=== PATIENT | male | born 1975 | race Caucasian/White ===

== ENCOUNTER 2016-05-03 17:24 | Emergency (ER) | payer OTHER ==
[~2016-05-03] VITALS: Ht 175.3 cm; Wt 97.7 kg
[~2016-05-03 17:24] MED LIST: ABILIFY5 MG PO; ALDACTONE50 MG PO; AMLODIPINE BESY10 MG PO; APRESOLINE25 MG PO; ASPIR-LOW81 MG PO; AZITHROMYCIN250 MG1 PO; Bentyl PO; CIPRO500 MG PO; CLARITIN10 M3 PO; CLARITIN10 MG PO; COMBIVENT RESPIM4 GM IH; DEPAKOTE500 MG PO; FIORICET,ESG1 TABLET PO; FLAGYL250 MG PO; FLONASE16 G1 BOTH NARES; GUAIFENESIN600 M1 PO; HYDROCHLOROTHIA25 MG PO; Hydrodiuril,Oretic,E PO; KEFLEX500 MG PO; LITHIUM CARBON300 MG PO; LORTAB 5-325 M1 EACH PO; METOPROLOL SUCC50 MG PO; METOPROLOL TART50 MG PO; NAMENDA XR28 MG PO; NAPROSYN500 MG PO; NORCO 5/3251 TABLET PO; NORTRIPTYLINE H25 MG PO; NORVASC; NORVASC10 MG PO; NORVASC5 MG PO; OMEPRAZOLE20 MG PO; ONDANSETRON HCL4 MG PO; PANTOPRAZOLE SO40 MG PO; PERCOCET 5/31 TABLET PO; POLYMYXIN B-TMP10 ML BOTH EYES; PRILOSEC10 MG PO; PRINIVIL20 MG PO; PROTONIX40 MG PO; PROZAC; Prozac PO; RANITIDINE HCL75 MG PO; REGLAN5 MG PO; ROBITUSSIN NIG118 ML PO; SINGULAIR10 MG PO; SUDAFED30 MG PO; SYMBICORT60 INHALA1 IH; TENORMIN100 MG PO; TOPAMAX25 MG PO; Toprol XL PO; ULTRAM50 MG PO; ZESTRIL,PRINIV2.5 MG PO; ZOFRAN4 MG PO; [UNRECOGNIZED DRUG - OTHER]
[2016-05-03] MEDS ORDERED: KEFLEX500 MG PO (18:45)
[2016-05-03] MEDS ORDERED: PERCOCET 5/31 TABLET PO (18:45)
[2016-05-03 19:07] VITALS: BP 155/88
== END 2016-05-03 19:22 | disposition home or self-care (01) ==
LOC: EME 17:24 → EXP 17:24
DX: L03.113 Cellulitis of right upper limb (principal); M77.8 Other enthesopathies, not elsewhere classified; E78.5 Hyperlipidemia, unspecified; I10 Essential (primary) hypertension
CPT/HCPCS: 99281; 99285

== ENCOUNTER → 2016-05-17 | Outpatient (CLI) | payer OTHER | END | disposition home or self-care (01) | LOC: NUC 07:20 | DX: R10.12 Left upper quadrant pain (principal); Z88.6 Allergy status to analgesic agent | CPT/HCPCS: 78264; A9541 ==

== ENCOUNTER 2016-06-11 13:16 | Emergency (ER) | payer OTHER ==
[~2016-06-11 13:16] MED LIST changes: +ESOMEPRAZOLE MA40 MG PO; +LOSARTAN POTASS50 MG PO; +MONTELUKAST SOD10 MG PO; +SIMVASTATIN10 MG PO
== END 2016-06-11 14:10 | disposition left against medical advice (07) ==
LOC: EME 13:16
DX: Z53.21 Procedure and treatment not carried out due to patient leaving prior to being seen by health care provider (principal)
CPT/HCPCS: 93005

== ENCOUNTER 2016-06-21 23:22 | Emergency (ER) | payer OTHER ==
[~2016-06-21] VITALS: Ht 175.3 cm; Wt 101.2 kg
[2016-06-22 00:42] LABS: EOSINOPHIL COUNT 0.2 K/uL (0-0.3); HEMATOCRIT 46.7 % (38.0-50.0); IMMATURE GRANULOCYTE (%) 0.2 % (0.0-0.7); IMMATURE GRANULOCYTE COUNT 0.2 K/uL; LYMPHOCYTE COUNT 3.2 K/uL (1.0-2.8); MCH 28.9 PG (29.0-34.0); MCHC 35.1 G/DL (30.0-36.0); MCV 82.4 FL (86-99); MEAN PLAT.VOLUME 9.2 uM^3 (9.0-12.4); MONOCYTE (%) 8.4 % (3-12); MONOCYTE COUNT 0.7 K/uL (0-0.8); NEUTROPHIL (%) 51.6 % (45-76); NEUTROPHIL COUNT 4.4 K/uL (1.8-6.4); PLATELET COUNT 219 K/uL (156-360); RBC DIS.WIDTH-CV 12.9 % (11.8-14.6); RBC DIS.WIDTH-SD 38.7 % (39-53); RED BLOOD COUNT 5.67 M/uL (4.00-5.50); WHITE BLOOD COUNT 8.6 K/uL (4.1-10.2)
[2016-06-22 01:07] LABS: CHLORIDE 110 mEq/L (99-109); SODIUM 142 mEq/L (136-147)
[2016-06-22 01:09] LABS: GLUCOSE 122 mg/dL (70-99)
[2016-06-22 01:11] LABS: ANION GAP 11 MEQ/L (2-14); TOTAL BILIRUBIN 0.3 mg/dL (0.0-1.0)
[2016-06-22 01:13] LABS: ALKALINE PHOSPHATASE 75 IU/L (3-129); GFR ESTIMATE (CALCULATED) > 59 mL/min/
[2016-06-22 01:14] LABS: UREA NITROGEN (BUN) 14 mg/dL (9-23)
[2016-06-22 01:16] LABS: URIC ACID 6.6 mg/dL (3.1-9.2)
[2016-06-22 01:28] LABS: ADD MIUA? NO; BILIRUBIN NEGATIVE; BLOOD NEGATIVE; COLOR YELLOW ((YELLOW)); GLUCOSE (STRIP) NEGATIVE; KETONES NEGATIVE; LEUKOCYTES NEGATIVE; NITRITE NEGATIVE; PROTEIN (STRIP) NEGATIVE; SPECIFIC GRAVITY 1.025 (1.000-1.030); UCUL ADDED? NO
[2016-06-22 03:25] VITALS: BP 121/77
== END 2016-06-22 03:26 | disposition home or self-care (01) ==
LOC: EME 23:22
PROVIDERS: Emergency Medicine
DX: M79.89 Other specified soft tissue disorders (principal); M79.671 Pain in right foot; M79.672 Pain in left foot; I10 Essential (primary) hypertension
CPT/HCPCS: 73610; 80053; 81003; 84550; 85025; 93970; 99281; 99284

== ENCOUNTER 2016-08-12 19:02 | Emergency (ER) | payer OTHER ==
[~2016-08-12] VITALS: Ht 175.3 cm; Wt 102.1 kg
[2016-08-12 19:29] LABS: ADD MIUA? YES; BILIRUBIN NEGATIVE; BLOOD NEGATIVE; COLOR YELLOW ((YELLOW)); GLUCOSE (STRIP) NEGATIVE; KETONES NEGATIVE; LEUKOCYTES NEGATIVE; NITRITE NEGATIVE; PROTEIN (STRIP) 30; SPECIFIC GRAVITY 1.021 (1.000-1.030); UROBILINOGEN 0.2 MG/DL (0.2-1.0)
[2016-08-12 19:45] LABS: EOSINOPHIL (%) 1.2 % (0-5); EOSINOPHIL COUNT 0.1 K/uL (0-0.3); HEMATOCRIT 50.2 % (38.0-50.0); IMMATURE GRANULOCYTE (%) 0.3 % (0.0-0.7); INSTRUMENT ABS NEUTROPHIL CT 5.7 K/uL; LYMPHOCYTE COUNT 3.1 K/uL (1.0-2.8); MCH 29.6 PG (29.0-34.0); MCHC 35.1 G/DL (30.0-36.0); MCV 84.4 FL (86-99); MONOCYTE (%) 6.9 % (3-12); MONOCYTE COUNT 0.7 K/uL (0-0.8); NEUTROPHIL (%) 59.6 % (45-76); NEUTROPHIL COUNT 5.7 K/uL (1.8-6.4); PLATELET COUNT 292 K/uL (156-360); RBC DIS.WIDTH-CV 12.4 % (11.8-14.6); RBC DIS.WIDTH-SD 37.7 % (39-53); RED BLOOD COUNT 5.95 M/uL (4.00-5.50); WHITE BLOOD COUNT 9.7 K/uL (4.1-10.2)
[2016-08-12 19:47] LABS: CHLORIDE 105 mEq/L (99-109); POTASSIUM 3.7 mEq/L (3.7-5.4); SODIUM 139 mEq/L (136-147)
[2016-08-12 19:49] LABS: GLUCOSE 99 mg/dL (70-99)
[2016-08-12 19:50] LABS: ANION GAP 11 MEQ/L (2-14)
[2016-08-12 19:51] LABS: TOTAL BILIRUBIN 0.3 mg/dL (0.0-1.0)
[2016-08-12 19:52] LABS: ALKALINE PHOSPHATASE 70 IU/L (3-129)
[2016-08-12 19:53] LABS: BACTERIA 1+ /HPF; CASTS NONE SEEN /LPF; CRYSTALS PRESENT; EPITHELIAL CELLS RARE /HPF; MUCUS 1+ /LPF; RED BLOOD CELLS 0-5 /HPF (0-5); UCUL ADDED? NO; WHITE BLOOD CELLS 0-5 /HPF (0-5)
[2016-08-12 19:53] LABS: GFR ESTIMATE (CALCULATED) > 59 mL/min/
[2016-08-12 19:54] LABS: AMORPHOUS URATES CRYSTALS 1+
[2016-08-12 19:54] LABS: UREA NITROGEN (BUN) 21 mg/dL (9-23)
[2016-08-12 19:56] LABS: LIPASE 31 U/L (1.0-51.0)
[2016-08-12] MEDS ORDERED: PHENERGAN25 MG PR (21:13)
[2016-08-12] MEDS ORDERED: BENTYL20 MG PO (21:13)
[2016-08-12] MEDS ORDERED: PROMETHAZINE HC25 M1 PO (21:13)
[2016-08-12 21:55] VITALS: BP 158/95
== END 2016-08-12 21:56 | disposition home or self-care (01) ==
LOC: EME 19:02
PROVIDERS: Physician Assistant
DX: N20.0 Calculus of kidney (principal); R11.0 Nausea; J45.909 Unspecified asthma, uncomplicated; I10 Essential (primary) hypertension
CPT/HCPCS: 74000; 76770; 80053; 81003; 83690; 85025; 87086; 99281; 99284; J1885; J2550; J3010; Q0169

== ENCOUNTER 2016-09-22 14:36 | Emergency (ER) | payer OTHER ==
[~2016-09-22] VITALS: Ht 177.8 cm; Wt 100.4 kg
[~2016-09-22 14:36] MED LIST changes: +BENTYL20 MG PO; +PHENERGAN25 MG PR; +PROMETHAZINE HC25 M1 PO
[2016-09-22 15:26] LABS: HEMATOCRIT 52.6 % (38.0-50.0); MCH 29.1 PG (29.0-34.0); MCHC 35.2 G/DL (30.0-36.0); MCV 82.8 FL (86-99); PLATELET COUNT 259 K/uL (156-360); RBC DIS.WIDTH-CV 11.9 % (11.8-14.6); RBC DIS.WIDTH-SD 36.3 % (39-53); RED BLOOD COUNT 6.35 M/uL (4.00-5.50); WHITE BLOOD COUNT 8.6 K/uL (4.1-10.2)
[2016-09-22 15:37] LABS: CHLORIDE 106 mEq/L (99-109); POTASSIUM 3.7 mEq/L (3.7-5.4); SODIUM 140 mEq/L (136-147)
[2016-09-22 15:39] LABS: GLUCOSE 92 mg/dL (70-99)
[2016-09-22 15:40] LABS: ANION GAP 12 MEQ/L (2-14)
[2016-09-22 15:41] LABS: TOTAL BILIRUBIN 0.6 mg/dL (0.0-1.0)
[2016-09-22 15:42] LABS: ALKALINE PHOSPHATASE 62 IU/L (3-129)
[2016-09-22 15:43] LABS: GFR ESTIMATE (CALCULATED) > 59 mL/min/
[2016-09-22 15:44] LABS: UREA NITROGEN (BUN) 20 mg/dL (9-23)
[2016-09-22 15:46] LABS: LIPASE 19 U/L (1.0-51.0)
[2016-09-22 15:53] LABS: ADD MIUA? NO; BILIRUBIN NEGATIVE; BLOOD NEGATIVE; COLOR YELLOW ((YELLOW)); GLUCOSE (STRIP) NEGATIVE; KETONES 5; LEUKOCYTES NEGATIVE; NITRITE NEGATIVE; PROTEIN (STRIP) 30; SPECIFIC GRAVITY 1.025 (1.000-1.030); UCUL ADDED? NO; UROBILINOGEN 0.2 MG/DL (0.2-1.0)
[2016-09-22] MEDS ORDERED: KEFLEX500 MG PO (16:45)
[2016-09-22] MEDS ORDERED: PYRIDIUM200 MG PO (16:46)
[2016-09-22 17:57] VITALS: BP 137/91
== END 2016-09-22 17:59 | disposition home or self-care (01) ==
LOC: EME 14:36
PROVIDERS: Physician Assistant
DX: N30.00 Acute cystitis without hematuria (principal); I10 Essential (primary) hypertension; Z88.1 Allergy status to other antibiotic agents; Z88.6 Allergy status to analgesic agent
CPT/HCPCS: 74176; 80053; 81003; 83690; 85027; 87086; 99281; 99284; J0696; J3010

== ENCOUNTER 2016-09-27 19:33 | Emergency (ER) | payer OTHER ==
[~2016-09-27] VITALS: Ht 177.8 cm; Wt 100.3 kg
[~2016-09-27 19:33] MED LIST changes: +PYRIDIUM200 MG PO
[2016-09-27 20:14] LABS: HEMATOCRIT 53.1 % (38.0-50.0); MCH 29.2 PG (29.0-34.0); MCV 83.2 FL (86-99); MEAN PLAT.VOLUME 8.9 uM^3 (9.0-12.4); PLATELET COUNT 266 K/uL (156-360); RBC DIS.WIDTH-SD 36.8 % (39-53); RED BLOOD COUNT 6.38 M/uL (4.00-5.50); WHITE BLOOD COUNT 8.8 K/uL (4.1-10.2)
[2016-09-27 20:17] LABS: CHLORIDE 106 mEq/L (99-109); POTASSIUM 3.7 mEq/L (3.7-5.4)
[2016-09-27 20:18] LABS: SODIUM 140 mEq/L (136-147)
[2016-09-27 20:19] LABS: GLUCOSE 85 mg/dL (70-99)
[2016-09-27 20:21] LABS: ANION GAP 10 MEQ/L (2-14)
[2016-09-27 20:23] LABS: GFR ESTIMATE (CALCULATED) > 59 mL/min/
[2016-09-27 20:24] LABS: UREA NITROGEN (BUN) 13 mg/dL (9-23)
[2016-09-27 21:34] LABS: ADD MIUA? NO; BILIRUBIN NEGATIVE; BLOOD NEGATIVE; COLOR STRAW ((YELLOW)); GLUCOSE (STRIP) NEGATIVE; KETONES 5; LEUKOCYTES NEGATIVE; NITRITE NEGATIVE; PROTEIN (STRIP) NEGATIVE; SPECIFIC GRAVITY 1.006 (1.000-1.030); UCUL ADDED? NO; UROBILINOGEN 0.2 MG/DL (0.2-1.0)
[2016-09-27 21:45] LABS: AMPHETAMINE NEGATIVE (500 ng/mL); BARBITURATES NEGATIVE (200 ng/mL); BENZODIAZEPINES NEGATIVE (150 ng/mL); COCAINE NEGATIVE (150 ng/mL); INTERNAL CONTROLS VALID? YES; METHADONE NEGATIVE (200 ng/mL); METHAMPHETAMINE NEGATIVE (500 ng/mL); OPIATES (MORPHINE) NEGATIVE (100 ng/mL); OXYCODONE NEGATIVE (100 ng/mL); PHENCYCLIDINE NEGATIVE (25 ng/mL); PROPOXYPHENE NEGATIVE (300 ng/mL); THC CANNABINOIDS NEGATIVE (50 ng/mL); TRICYCLIC ANTIDEPRESSANTS NEGATIVE (300 ng/mL)
[2016-09-27 23:45] VITALS: BP 130/88
== END 2016-09-27 23:46 | disposition home or self-care (01) ==
LOC: EME 19:33 → EXP 19:33
PROVIDERS: Physician Assistant
DX: G43.909 Migraine, unspecified, not intractable, without status migrainosus (principal); R20.8 Other disturbances of skin sensation; I10 Essential (primary) hypertension; K58.9 Irritable bowel syndrome, unspecified; Z88.1 Allergy status to other antibiotic agents; Z88.6 Allergy status to analgesic agent
CPT/HCPCS: 70450; 80048; 81003; 85027; 93005; 99281; 99284; J0595; J1200; J2550; J7030

== ENCOUNTER 2016-11-30 21:21 | Emergency (ER) | payer OTHER ==
[~2016-11-30] VITALS: Ht 175.3 cm; Wt 98.5 kg
[2016-11-30] MEDS ORDERED: ERYTHROMYC1 APPLICAT LEFT EYE (22:53)
[2016-11-30 23:14] VITALS: BP 135/95
== END 2016-11-30 23:15 | disposition home or self-care (01) ==
LOC: EME 21:21
DX: S05.92XA Unspecified injury of left eye and orbit, initial encounter (principal); W22.09XA Striking against other stationary object, initial encounter; Y92.511 Restaurant or cafe as the place of occurrence of the external cause; H53.8 Other visual disturbances; Z88.0 Allergy status to penicillin
CPT/HCPCS: 99281; 99283

== ENCOUNTER 2017-01-24 23:36 | Emergency (ER) | payer OTHER ==
[~2017-01-24] VITALS: Ht 175.3 cm; Wt 97.5 kg
[~2017-01-24 23:36] MED LIST changes: +ERYTHROMYC1 APPLICAT LEFT EYE
[2017-01-25 00:08] LABS: HEMATOCRIT 47.1 % (38.0-50.0); MCH 28.6 PG (29.0-34.0); MCHC 34.8 G/DL (30.0-36.0); MCV 82.1 FL (86-99); PLATELET COUNT 259 K/uL (156-360); RBC DIS.WIDTH-CV 12.3 % (11.8-14.6); RBC DIS.WIDTH-SD 36.8 % (39-53); RED BLOOD COUNT 5.74 M/uL (4.00-5.50); WHITE BLOOD COUNT 11.6 K/uL (4.1-10.2)
[2017-01-25 00:21] LABS: CHLORIDE 107 mEq/L (99-109); POTASSIUM 3.5 mEq/L (3.7-5.4); SODIUM 142 mEq/L (136-147)
[2017-01-25 00:23] LABS: GLUCOSE 103 mg/dL (70-99)
[2017-01-25 00:25] LABS: ANION GAP 14 MEQ/L (2-14)
[2017-01-25 00:27] LABS: GFR ESTIMATE (CALCULATED) > 59 mL/min/
[2017-01-25 00:28] LABS: UREA NITROGEN (BUN) 15 mg/dL (9-23)
[2017-01-25 00:34] LABS: TROP-I INTERPRETATION NEGATIVE; TROPONIN-I 0.01 ng/mL (0.0-0.30)
[2017-01-25 02:28] VITALS: BP 129/96
== END 2017-01-25 02:28 | disposition home or self-care (01) ==
LOC: EME 23:36
DX: R07.89 Other chest pain (principal); R20.0 Anesthesia of skin; M79.89 Other specified soft tissue disorders; R06.00 Dyspnea, unspecified; I10 Essential (primary) hypertension
CPT/HCPCS: 71020; 80048; 84484; 85027; 85610; 93005; 93971; 99281; 99284

== ENCOUNTER 2017-08-08 11:14 | Emergency (ER) | payer OTHER ==
[~2017-08-08] VITALS: Ht 175.3 cm; Wt 97.6 kg
[2017-08-08 11:53] LABS: CHLORIDE 107 mEq/L (99-109); POTASSIUM 4.2 mEq/L (3.7-5.4); SODIUM 144 mEq/L (136-147)
[2017-08-08 11:54] LABS: GLUCOSE 98 mg/dL (70-99)
[2017-08-08 11:58] LABS: GFR ESTIMATE (CALCULATED) > 59 mL/min/ (58.99-99999)
[2017-08-08 11:59] LABS: UREA NITROGEN (BUN) 10 mg/dL (9-23)
[2017-08-08 12:02] LABS: HEMATOCRIT 50.2 % (38.0-50.0); HEMOGLOBIN 17.4 G/DL (12.5-16.6); MCH 29.3 PG (29.0-34.0); MCHC 34.7 G/DL (30.0-36.0); MCV 84.7 FL (86-99); PLATELET COUNT 242 K/uL (156-360); RBC DIS.WIDTH-CV 12.4 % (11.8-14.6); RBC DIS.WIDTH-SD 38.3 % (39-53); RED BLOOD COUNT 5.93 M/uL (4.00-5.50); WHITE BLOOD COUNT 8.8 K/uL (4.1-10.2)
[2017-08-08] MEDS ORDERED: PEPCID20 MG PO (16:15)
[2017-08-08] MEDS ORDERED: PREDNISONE20 MG PO (16:15)
[2017-08-08] MEDS ORDERED: TESSALON PERLE100 MG PO (16:17)
[2017-08-08 17:24] LABS: D-DIMER ELISA < 150.00 ng/mLDDU (<230)
[2017-08-08 17:38] LABS: TROP-I INTERPRETATION NEGATIVE; TROPONIN-I < 0.01 ng/mL (0.0-0.30)
[2017-08-08 20:38] LABS: TROP-I INTERPRETATION NEGATIVE; TROPONIN-I < 0.01 ng/mL (0.0-0.30)
[2017-08-08 21:16] VITALS: BP 143/84
== END 2017-08-08 21:16 | disposition home or self-care (01) ==
LOC: EME 11:14
PROVIDERS: Physician Assistant
DX: J45.901 Unspecified asthma with (acute) exacerbation (principal); J06.9 Acute upper respiratory infection, unspecified; I10 Essential (primary) hypertension; K58.0 Irritable bowel syndrome with diarrhea; F32.9 Major depressive disorder, single episode, unspecified; Z88.0 Allergy status to penicillin; Z88.6 Allergy status to analgesic agent; Z87.19 Personal history of other diseases of the digestive system
CPT/HCPCS: 71046; 80048; 84484; 85027; 85379; 93005; 94640; 94644; 99281; 99285; J2930; J7030

== ENCOUNTER 2017-09-01 22:38 | Emergency (ER) | payer OTHER ==
[~2017-09-01] VITALS: Ht 175.3 cm; Wt 96.2 kg
[~2017-09-01 22:38] MED LIST changes: +PEPCID20 MG PO; +PREDNISONE20 MG PO; +TESSALON PERLE100 MG PO
[2017-09-02] VITALS: BP 158/101
== END 2017-09-02 00:01 | disposition home or self-care (01) ==
LOC: EME 22:38
DX: S93.402A Sprain of unspecified ligament of left ankle, initial encounter (principal); Y93.B9 Activity, other involving muscle strengthening exercises; I10 Essential (primary) hypertension; J45.909 Unspecified asthma, uncomplicated; Z87.19 Personal history of other diseases of the digestive system; Z88.0 Allergy status to penicillin; Z88.6 Allergy status to analgesic agent; Z88.8 Allergy status to other drugs, medicaments and biological substances
CPT/HCPCS: 73610; 99281; 99284

== ENCOUNTER 2017-09-07 04:17 | Emergency (ER) | payer BC, OTHER ==
[~2017-09-07] VITALS: Ht 175.3 cm; Wt 95.3 kg
[2017-09-07] MEDS ORDERED: VALIUM5 MG PO (05:20)
[2017-09-07 06:22] VITALS: BP 148/91
== END 2017-09-07 06:23 | disposition home or self-care (01) ==
LOC: EME 04:17
DX: M54.12 Radiculopathy, cervical region (principal); Z98.1 Arthrodesis status; J45.909 Unspecified asthma, uncomplicated; I10 Essential (primary) hypertension; F32.9 Major depressive disorder, single episode, unspecified; F10.10 Alcohol abuse, uncomplicated; Z87.19 Personal history of other diseases of the digestive system; K58.9 Irritable bowel syndrome, unspecified; Z88.0 Allergy status to penicillin; Z88.8 Allergy status to other drugs, medicaments and biological substances; Z88.6 Allergy status to analgesic agent
CPT/HCPCS: J1100

== ENCOUNTER 2017-12-11 03:52 | Inpatient (IN) | payer BC ==
[~2017-12-11] VITALS: Ht 175.3 cm; Wt 92.3 kg
[2017-12-11] VITALS (19 sets, daily range): BP systolic 103–149; BP diastolic 59–96
[~2017-12-11 03:52] MED LIST changes: +VALIUM5 MG PO
[2017-12-11 04:20] LABS: BASOPHIL (%) 0.4 % (0-1); BASOPHIL COUNT 0.1 K/uL (0-0.1); EOSINOPHIL (%) 0.3 % (0-5); HEMATOCRIT 53.7 % (38.0-50.0); HEMOGLOBIN 18.4 G/DL (12.5-16.6); IMMATURE GRANULOCYTE (%) 0.3 % (0.0-0.7); LYMPHOCYTE (%) 27.6 % (15-42); LYMPHOCYTE COUNT 3.9 K/uL (1.0-2.8); MCH 28.8 PG (29.0-34.0); MCHC 34.3 G/DL (30.0-36.0); MCV 84.2 FL (86-99); MONOCYTE (%) 10.1 % (3-12); MONOCYTE COUNT 1.4 K/uL (0-0.8); NEUTROPHIL (%) 61.3 % (45-76); NEUTROPHIL COUNT 8.6 K/uL (1.8-6.4); PLATELET COUNT 287 K/uL (156-360); RBC DIS.WIDTH-SD 39.4 % (39-53); RED BLOOD COUNT 6.38 M/uL (4.00-5.50)
[2017-12-11 04:22] LABS: PTT 33.5 SEC (25-37)
[2017-12-11 04:25] LABS: ALBUMIN 4.9 g/dL (3.2-4.8); CHLORIDE 105 mEq/L (99-109); SODIUM 141 mEq/L (136-147)
[2017-12-11 04:26] LABS: AMYLASE 56 IU/L (1-118)
[2017-12-11 04:28] LABS: GLUCOSE 90 mg/dL (70-99); TOTAL PROTEIN 7.7 g/dL (6.4-8.3)
[2017-12-11 04:30] LABS: TOTAL BILIRUBIN 0.9 mg/dL (0.0-1.0)
[2017-12-11 04:31] LABS: ALKALINE PHOSPHATASE 82 IU/L (3-129); GFR ESTIMATE (CALCULATED) > 59 mL/min/ (58.99-99999); SERUM ETHYL ALCOHOL < 10 mg/dL
[2017-12-11 04:33] LABS: AST (GOT) 39 IU/L (2-34); UREA NITROGEN (BUN) 17 mg/dL (9-23)
[2017-12-11 04:34] LABS: ALT (GPT) 50 IU/L (3-49)
[2017-12-11 04:35] LABS: LIPASE 7 U/L (1.0-51.0)
[2017-12-11 04:41] LABS: TROP-I INTERPRETATION NEGATIVE; TROPONIN-I < 0.01 ng/mL (0.0-0.30)
[2017-12-11 06:20] LABS: HDL CHOLESTEROL 47 MG/DL (Desirable>=40); LDL CHOLESTEROL 131 mg/dL (Desirable<100); NON-HDL CHOLESTEROL 149 mg/dL (Desirable<160); TOTAL CHOLESTEROL 196 mg/dL (Desirable<200); TRIGLYCERIDES 90 MG/DL (Normal: <150)
[2017-12-11 06:49] LABS: APPEARANCE CLEAR ((CLEAR)); BILIRUBIN NEGATIVE; BLOOD NEGATIVE; COLOR YELLOW ((YELLOW)); GLUCOSE (STRIP) NEGATIVE; KETONES 5; LEUKOCYTES NEGATIVE; NITRITE NEGATIVE; PROTEIN (STRIP) NEGATIVE; SPECIFIC GRAVITY 1.036 (1.000-1.030); UCUL ADDED? NO; UROBILINOGEN 0.2 MG/DL (0.2-1.0)
[2017-12-11 07:26] LABS: COCAINE NEGATIVE (150 ng/mL); METHAMPHETAMINE NEGATIVE (500 ng/mL); OPIATES (MORPHINE) NEGATIVE (100 ng/mL); PHENCYCLIDINE NEGATIVE (25 ng/mL); THC CANNABINOIDS NEGATIVE (50 ng/mL)
[2017-12-11 07:27] LABS: AMPHETAMINE PRESUMPTIVE POSITIVE (500 ng/mL); BARBITURATES NEGATIVE (200 ng/mL); BENZODIAZEPINES NEGATIVE (150 ng/mL); BUPRENORPHINE NEGATIVE (10 ng/mL); METHADONE NEGATIVE (200 ng/mL); OXYCODONE NEGATIVE (100 ng/mL); PROPOXYPHENE NEGATIVE (300 ng/mL); TRICYCLIC ANTIDEPRESSANTS NEGATIVE (300 ng/mL)
[2017-12-11] MEDS ORDERED: NAMENDA XR28 MG PO (07:56)
[2017-12-11] MEDS ORDERED: ZOCOR10 MG PO (07:56)
[2017-12-11] MEDS ORDERED: COZAAR50 MG PO (07:56)
[2017-12-11] MEDS ORDERED: CHLORTHALIDONE25 MG PO (07:57)
[2017-12-11] MEDS ORDERED: AMPHETAMINE SALT5 MG PO (07:58)
[2017-12-11] MEDS ORDERED: SINGULAIR10 MG PO (07:59)
[2017-12-11] MEDS ORDERED: NORVASC10 MG PO (08:04)
[2017-12-11] MEDS ORDERED: DOXYCYCLINE HY100 MG PO (08:05)
[2017-12-11] MEDS ORDERED: PROMETHAZINE HC25 M1 PO (08:07)
[2017-12-11] MEDS ORDERED: BENTYL20 MG PO (08:08)
[2017-12-11] MEDS ORDERED: PEPCID20 MG PO (08:09)
[2017-12-11] MEDS ORDERED: SUCRALFATE1 GM PO (08:10)
[2017-12-11] MEDS ORDERED: DICLOFENAC SOD100 G1 TP (08:12)
[2017-12-11] MEDS ORDERED: VALIUM5 MG PO (08:12)
[2017-12-11 13:32] LABS: HEMOGLOBIN A1c (GLYCOHEMOGLOB) 5.6 % (Below 5.7)
[2017-12-12] VITALS (18 sets, daily range): BP systolic 101–154; BP diastolic 60–107
[2017-12-12 09:06] LABS: BASOPHIL (%) 0.5 % (0-1); BASOPHIL COUNT 0.1 K/uL (0-0.1); EOSINOPHIL (%) 1.6 % (0-5); EOSINOPHIL COUNT 0.2 K/uL (0-0.3); HEMOGLOBIN 16.8 G/DL (12.5-16.6); IMMATURE GRANULOCYTE (%) 0.4 % (0.0-0.7); LYMPHOCYTE (%) 27.4 % (15-42); MCH 28.9 PG (29.0-34.0); MCHC 33.6 G/DL (30.0-36.0); MCV 85.9 FL (86-99); MONOCYTE (%) 7.9 % (3-12); MONOCYTE COUNT 0.9 K/uL (0-0.8); NEUTROPHIL (%) 62.2 % (45-76); NEUTROPHIL COUNT 6.7 K/uL (1.8-6.4); PLATELET COUNT 259 K/uL (156-360); RBC DIS.WIDTH-CV 13.2 % (11.8-14.6); RED BLOOD COUNT 5.82 M/uL (4.00-5.50); WHITE BLOOD COUNT 10.8 K/uL (4.1-10.2)
[2017-12-12 09:18] LABS: PTT 33.9 SEC (25-37)
[2017-12-12 09:32] LABS: CHLORIDE 104 MEQ/L (99-109); CREATININE 0.9 MG/DL (0.6-1.3); GFR ESTIMATE (CALCULATED) > 59 mL/min/ (58.99-99999); GLUCOSE 125 mg/dL (70-99); POTASSIUM 3.6 MEQ/L (3.7-5.4); SODIUM 139 MEQ/L (136-147); UREA NITROGEN (BUN) 15 mg/dL (9-23)
[2017-12-12 09:37] LABS: PHOSPHORUS 4.1 mg/dL (2.5-4.9)
[2017-12-13] VITALS: BP 150/105
[2017-12-13 00:44] VITALS: BP 135/90
[2017-12-13 03:46] VITALS: BP 121/69
[2017-12-13 07:18] VITALS: BP 117/65
[2017-12-13 11:18] VITALS: BP 128/71
[2017-12-13] MEDS ORDERED: ATORVASTATIN CA80 MG PO (11:56)
[2017-12-13] MEDS ORDERED: LO-DOSE ASPIRIN81 M1 PO (11:56)
[2017-12-13] MEDS ORDERED: ULTRAM50 MG PO (12:25)
== END 2017-12-13 13:25 | disposition home or self-care (01) | DRG 62 ==
LOC: EME 03:52 → 4WEST 07:50 → EDOF 07:50 → ENRESERV 08:13 → 4WEST 09:18 → ENRESERV 12-12 13:32 → ENRESERVTM 12-12 13:32 → 4WEST 12-12 13:44 → 5SOUTH 12-12 14:43
PROVIDERS: Emergency Medicine; Specialist
DX: G45.9 Transient cerebral ischemic attack, unspecified (principal); G58.8 Other specified mononeuropathies; I16.1 Hypertensive emergency; I10 Essential (primary) hypertension; D75.1 Secondary polycythemia; J45.909 Unspecified asthma, uncomplicated; E78.5 Hyperlipidemia, unspecified; F31.9 Bipolar disorder, unspecified; G43.909 Migraine, unspecified, not intractable, without status migrainosus; Z87.19 Personal history of other diseases of the digestive system
CPT/HCPCS: 70450; 70496; 70498; 70551; 71045; 80048; 80053; 80061; 81003; 82150; 83036; 83690; 83735; 84100; 84484; 84999; 85025; 85610; 85730; 86850; 86900; 86901; 87641; 93005; 93306; 99281; 99285; G0480; J0360; J1644; J2405; J2997; J7050